=== PATIENT | male | born 1960 | race Caucasian/White ===

== ENCOUNTER → 2025-04-05 | Outpatient (CLI) | payer OTHER | LOC: M SOG 06:46 | PROVIDERS: ATTEND Neuromusculoskeletal Medicine, Sports Medicine | DX: M25.561 Pain in right knee (principal) ==

== ENCOUNTER → 2025-05-01 | Outpatient (CLI) | payer OTHER | LOC: M RAD 07:11 | PROVIDERS: ATTEND Neuromusculoskeletal Medicine, Sports Medicine | DX: M17.11 Unilateral primary osteoarthritis, right knee (principal) ==